=== PATIENT | male | born 1955 | race Caucasian/White ===

== ENCOUNTER → 2018-03-29 | Outpatient (CLI) | payer OTHER | END | disposition home or self-care (01) | LOC: RAD 16:48 | PROVIDERS: ATTEND Orthopaedic Surgery | DX: M75.102 Unspecified rotator cuff tear or rupture of left shoulder, not specified as traumatic (principal) ==

== ENCOUNTER 2018-05-30 10:33 | Day surgery (SDC) | payer OTHER ==
[~2018-05-30] VITALS: Ht 177.8 cm; Wt 120.9 kg
[~2018-05-30 10:33] MED LIST: ASPI81TA45 PO; ATOR20TA37 PO; CANA300T PO; CHOL500015 PO; INSU100I32 SC; LIRA0.6P SC; LISI-170 PO; METF500T17 PO; NAPR-856 PO; POTA90TA2 PO; SERT100T5 PO
[2018-05-30] MEDS ORDERED: LIDOCAINE 1%-EPI 1:100K, 30ML ONE (10:38)
[2018-05-30] MEDS ORDERED: LACTATED RINGERS 1,000 ML IV SCH (10:52)
[2018-05-30 10:57] VITALS: BP 116/77
[2018-05-30] MEDS ORDERED: MIDAZOLAM 1 MG/ML, 2ML ONE (11:58)
[2018-05-30] MEDS ORDERED: ONDANSETRON 2MG/ML, 2ML ONE (12:16)
[2018-05-30] MEDS ORDERED: CEFAZOLIN 1,000 MG ONE (12:16)
[2018-05-30] MEDS ORDERED: PROPOFOL 10 MG/ML, 20ML ONE (12:16)
[2018-05-30] MEDS ORDERED: SUCCINYLCHOLINE 20 MG/ML, 10ML ONE (12:16)
[2018-05-30] MEDS ORDERED: DEXAMETHASONE 4 MG/ML, 1ML ONE (12:16)
[2018-05-30] MEDS ORDERED: CLINDAMYCIN 150 MG/ML, 6ML ONE (12:47)
[2018-05-30] MEDS ORDERED: PROMETHAZINE 25 MG/ML, 1ML IV PRN (13:00)
[2018-05-30] MEDS ORDERED: HYDROmorphone 2 MG/ML, 1ML IVPush PRN (13:00)
[2018-05-30] MEDS ORDERED: FENTANYL PF 100 MCG/2ML IV PRN (13:00)
[2018-05-30] MEDS ORDERED: OXYcodone 5 MG/5 ML ORAL.SOL UDC PO PRN (13:00)
[2018-05-30] MEDS ORDERED: hydrALAzine 20 MG/ML, 1ML IV PRN (13:00)
[2018-05-30] MEDS ORDERED: MEPERIDINE/PF 25MG/0.5ML IVPush PRN (13:00)
[2018-05-30] MEDS ORDERED: LABETALOL 5MG/ML, 20ML IV PRN (13:00)
[2018-05-30] MEDS ORDERED: DIAZEPAM 5 MG/ML, 2ML IVPush PRN (13:00)
[2018-05-30] MEDS ORDERED: ALBUTEROL SULFATE 2.5 MG/3 ML NPPB PRN (13:00)
[2018-05-30] MEDS ORDERED: KETOROLAC 30 MG/1 ML IV PRN (13:00)
[2018-05-30] MEDS ORDERED: ACETAMINOPHEN 325 MG TABLET PO PRN (13:00)
[2018-05-30] MEDS ORDERED: FENTANYL PF 250 MCG/5ML ONE (14:09)
[2018-05-30] MEDS ORDERED: MEPERIDINE/PF 50 MG/ML ONE (14:10)
== END 2018-05-30 15:35 | disposition home or self-care (01) ==
LOC: OUT 10:33
PROVIDERS: ATTEND Orthopaedic Surgery
DX: S46.012A Strain of muscle(s) and tendon(s) of the rotator cuff of left shoulder, initial encounter (principal); S43.432A Superior glenoid labrum lesion of left shoulder, initial encounter; M75.42 Impingement syndrome of left shoulder; M75.22 Bicipital tendinitis, left shoulder; M65.812 Other synovitis and tenosynovitis, left shoulder; M75.52 Bursitis of left shoulder; I10 Essential (primary) hypertension; E78.5 Hyperlipidemia, unspecified; E11.9 Type 2 diabetes mellitus without complications; Z79.82 Long term (current) use of aspirin; Z79.899 Other long term (current) drug therapy; X58.XXXA Exposure to other specified factors, initial encounter; Y93.89 Activity, other specified; Y92.89 Other specified places as the place of occurrence of the external cause; Y99.8 Other external cause status
CPT/HCPCS: 23430; 29823; 29826; 29827; 64415; C1713; J0330; J0690; J1100; J2175; J2250; J2405; J2704; J3010; J3490